=== PATIENT | male | born 1940 | race Hispanic/Latino ===

== ENCOUNTER 2018-08-27 05:36 | Day surgery (SDC) | payer MEDICARE, OTHER ==
[2018-08-27] MEDS ORDERED: Morphine 4 MG/ML VIAL ONE ×2 (05:50→06:40)
[2018-08-27] MEDS ORDERED: Piperacillin/Tazobactam 4.5 GM VIAL ONE (06:40)
[2018-08-27] MEDS ORDERED: Ketorolac Tromethamine 30 MG/ML VIAL ONE (07:40)
--- NOTE | 2018-08-27 08:12 | ULT ---
PRELIMINARY REPORT/[facility]/EMERGENTY AFTER-HOURS PROCEDURE US Abdomen Limited, Right Upper Quadrant EXAM DATE/TIME: 08/27/2018 6:00 AM CLINICAL HISTORY: 78 years old, male; Pain; Abdominal pain; Localized; Right upper quadrant (ruq) TECHNIQUE: Real-time ultrasound of the abdomen with image documentation. Examination was focused on the right up per quadrant. COMPARISON: No relevant prior studies available. FINDINGS: Liver: Slight increased echogenicity of the liver may indicate fatty infiltration. Otherwise unremark able liver, no focal abnormality. Gallbladder: Numerous shadowing gallstones within the gallbladder. The gallbladder appears somewhat distended, transverse diameter of about 5 cm. Mild gallbladder wall thickening, measuring up to 3.7 mm. No definite pericholecystic fluid. Technologist states patient is tender over the gallbladder region during scanning. Common bile duct: No significant biliary dilation, common duct measures about 5 mm. Pancreas: Visible pancreas unremarkable. Much of the pancreas is obscured by bowel gas. Right kidney: Images of the right kidney show no hydronephrosis. Possibility of small intrarenal calculi, difficult to be certain. IMPRESSION: 1. Cholelithiasis, with gallbladder distention, see additional details above. 2. No significant biliary tree dilation. 3. Other findings discussed above. Thank you for allowing us to participate in the care of your patient. Dictated and Authenticated by: Steve Solorio MD 08/27/2018 6:57 AM Central Time ([place] & [place]) FINAL REPORT GALLBLADDER ULTRASOUND: Date: 08/27/18 There is cholelithiasis, as described on preliminary report. I am in agreement with the preliminary r eport issued by [facility]. POS: [facility]
--- NOTE | 2018-08-27 08:17 | HP ---
HISTORY OF PRESENT ILLNESS: Uli Hathaway is a 78-year-old male, lives with his at home in [place]. He is retired from doing maintenance at the [employer]. He had acute onset 2 days ago in epigastric right upper quadrant pain and back radiation and nausea. He has not had prior biliary symptoms. He was seen in the emergency room. CAT scan of the abdomen and pelvis is unremarkable except for gallstones. Ultrasound revealed positive sonographic Back's sign, normal bile duct caliber, and multiple cholelithiasis. His liver function tests were normal. Lipase is normal. ALLERGIES: NONE. SOCIAL HISTORY: Tobacco, none. Alcohol, none. MEDICATIONS: Antihypertensive. PAST SURGICAL HISTORY: Left knee surgery 20 years ago, arthroscopy, and right knee injection for arthritic pain. PAST MEDICAL HISTORY: Hypertension. FAMILY HISTORY: Noncontributory. REVIEW OF SYSTEMS: Ten-point noncontributory. PHYSICAL EXAMINATION: VITAL SIGNS: Blood pressure 130/78, respiratory rate 18, and heart rate 78. HEAD, EARS, EYES, NOSE, AND THROAT: Unremarkable. Sclerae are nonicteric. Skin, nonjaundiced. LUNGS: Clear to auscultation. CARDIAC: Regular rate and rhythm without murmur or gallop. ABDOMEN: Soft. Positive Back's sign. Tenderness is right upper quadrant with guarding. EXTREMITIES: Unremarkable. No ankle edema. Palpable pedal pulses. NEUROLOGICAL: Intact. No focal deficits. ASSESSMENT AND PLAN: 1. Acute cholecystitis with cholelithiasis. Recommend laparoscopic video cholecystectomy. Risks of infection, bleeding, visceral and biliary injury, risk of open operation and transfusions discussed. Questions answered. 2. Hypertension. Job ID: [id number]
[2018-08-27] MEDS ORDERED: Scopolamine 1.5 mg/72 hour Patch ONE (08:56)
[2018-08-27] MEDS ORDERED: Bupivacaine/Epinephrine 0.25% 30 ML VIAL ONE (11:14)
[2018-08-27] MEDS ORDERED: Fentanyl 100 MCG/2 ML VIAL ONE ×2 (11:21→13:30)
[2018-08-27] MEDS ORDERED: Piperacillin/Tazobactam 3.375 GM VIAL ONE (12:29)
[2018-08-27] MEDS ORDERED: SUGAMMADEX SODIUM 200 MG/2 ML VIAL ONE (12:57)
[2018-08-27] MEDS ORDERED: ePHEDrine/0.9% NaCl/PF SYRINGE 50 mg/10 ml ONE (13:53)
[2018-08-27] MEDS ORDERED: PROPOFOL 200 MG/20 ML VIAL ONE (13:53)
[2018-08-27] MEDS ORDERED: Glycopyrrolate 0.2 MG/ML 5 ML SYRINGE ONE (13:53)
[2018-08-27] MEDS ORDERED: Lidocaine 1% PF 5 ML VIAL ONE (13:53)
[2018-08-27] MEDS ORDERED: PHENYLEPHRINE-NS 100 MCG/ML 10 ML SYRINGE ONE (13:53)
[2018-08-27] MEDS ORDERED: Ondansetron PF 4 MG/2 ML Vial ONE (13:53)
[2018-08-27] MEDS ORDERED: Promethazine HCl 25 MG/ML VIAL ONE (16:02)
--- NOTE | 2018-08-27 16:15 | OP ---
DATE OF PROCEDURE: 08/27/2018 PREOPERATIVE DIAGNOSES: Acute cholecystitis, chronic cholecystitis, cholelithiasis. POSTOPERATIVE DIAGNOSES: Acute cholecystitis, chronic cholecystitis, cholelithiasis. PROCEDURE PERFORMED: Laparoscopic video cholecystectomy. Note, the patient had a huge gallbladder filled with a great amount of stones requiring 2 bags to remove it, requiring closure of the anterior and posterior rectus sheath once gallbladder was removed. ANESTHESIA: General, local of 0.5% Marcaine with epinephrine 30 mL. DESCRIPTION OF PROCEDURE: The patient was taken to the operating room, where under general anesthesia, abdomen was clipped of hair, prepared with ChloraPrep, and draped in routine fashion. Local anesthetic of 0.5% Marcaine with epinephrine was infiltrated in the skin and subcutaneous tissue about each port site. An infraumbilical incision was made. Pneumoperitoneum to 15 mmHg was obtained with a Veress needle, replaced with a 5 port, and a video laparoscope was inserted. A right subxiphoid incision was made, an 11 port placed. A right subcostal incision was made, midclavicular and anterior axillary lines and 5 port was placed. Gallbladder was huge, greatly distended. Full of stones. It was grasped at the fundus, grasped at the cephalad, infundibulum was grasped attachments were taken down. Dissection was carried out to obtain a critical view. Cystic artery and duct double clipped proximally, divided, gallbladder was dissected free from the liver bed obtaining good hemostasis prior to division of the final peritoneal attachments. Gallbladder and contents were placed in one bag and it would not fit completely and I had to place a 2nd bag. It was then removed through the subxiphoid incision enlarging the skin incision, fascial incisions, anterior and posterior rectus sheath incisions to enable removal. Once the gallbladder and stones were removed, multiple stones and gallbladder submitted to Pathology. Stones were removed from the abdominal cavity. Subhepatic space was irrigated and irrigant evacuated. Hemostasis was ensured with cautery. Irrigant and pneumoperitoneum were evacuated. All instruments were removed and anterior and posterior rectus sheath. Subxiphoid was closed with [id number] suture of 0 Vicryl. Skin and subcutaneous tissues were irrigated. Skin was approximated with interrupted subdermal 4-0 Monocryl, and [place] glue applied. Job ID: [id number]
== END 2018-08-27 16:20 | disposition home or self-care (01) ==
LOC: ERS 05:36 → SDC 08:34
PROVIDERS: ATTEND Specialist
PROC: 0FT44ZZ Resection of Gallbladder, Percutaneous Endoscopic Approach (ICD-10-PCS; principal; 2018-08-27)
DX: K80.12 Calculus of gallbladder with acute and chronic cholecystitis without obstruction (principal); I10 Essential (primary) hypertension; E66.9 Obesity, unspecified; Z79.899 Other long term (current) drug therapy
CPT/HCPCS: 76705; 88304; 96361; 96365; 96374; 96375; 96376; J1885; J2001; J2270; J2405; J2543; J2550; J2704; J3010

== ENCOUNTER 2024-06-14 18:48 | Emergency (ER) | payer OTHER ==
[2024-06-14 23:04] LABS: #Basophils 0.03 10x3/uL (0.0-0.2); %Basophils 0.4 % (0.0-1.0); %Eosinophils 1.3 % (0.0-10.0); %Lymphocytes 40.5 % (21.0-51.0); %Monocytes 7.7 % (0.0-10.0); %Neutrophils 49.8 % (42.0-75.0); Hematocrit 40.6 % (42.0-52.0); Hemoglobin 13.4 g/dL (14.0-18.0); Mean Corpuscular Volume 90.8 fL (78.0-98.0); Mean Platelet Volume 10.2 fL (7.4-10.4); Platelet Count 176 10x3/uL (130-400); RBC Distribution Width 12.3 % (11.5-14.5); Red Blood Cell (RBC) Count 4.47 mill/uL (4.70-6.10)
[2024-06-14 23:18] LABS: ALT (SGPT) 29 U/L (8-55); AST (SGOT) 22 U/L (5-34); Albumin 4.2 g/dL (3.4-4.8); Alkaline Phosphatase 53 U/L (40-110); Anion Gap 13 mmol/L (10-20); BUN (Urea Nitrogen) 24 mg/dL (8.4-25.7); Bilirubin, Total 0.8 mg/dL (0.2-1.2); Calc. Creatinine Clearance 0 mL/min (70-130); Calcium 9.3 mg/dL (7.8-10.44); Carbon Dioxide 22 mmol/L (23-31); Chloride 105 mmol/L (98-107); Estimated GFR 59; Globulin 2.9 g/dL (2.4-3.5); Glucose 93 mg/dL (83-110); Protein, Total 7.1 g/dL (5.8-8.1); Sodium 136 mmol/L (136-145)
[2024-06-14] MEDS ORDERED: fentaNYL 50 mcg/mL 1 mL Vial ONE (23:53)
== END 2024-06-15 00:45 | disposition home or self-care (01) ==
LOC: ERS 18:48
DX: R60.0 Localized edema (principal); I10 Essential (primary) hypertension; Z79.899 Other long term (current) drug therapy
CPT/HCPCS: 73590; 80053; 85025; 93971; 96374; 99284; J3010; 36415